=== PATIENT | male | born 1990 | race Caucasian/White ===

== ENCOUNTER 2024-11-16 18:07 | Emergency (ER) | payer OTHER ==
[2024-11-16 18:15] VITALS: TEMP 98; BMI 39.1
[2024-11-16] MEDS ORDERED: ACETAMINOPHEN 325 MG TABLET (FP) ONE ×2 (20:11→20:15)
[2024-11-16] MEDS ORDERED: DIPHTH,PERTUSS(ACELL),TET 0.5 ML DISP.SYRIN IM ONE (20:11)
[2024-11-16] MEDS ORDERED: CEPHALEXIN MONOHYDRATE 500 MG CAPSULE (UD) ONE (20:11)
[2024-11-16] MEDS: DIPHTH,PERTUSS(ACELL),TET 0.5 ML DISP.SYRIN IM ONE (20:21)
[2024-11-16] MEDS: ACETAMINOPHEN 500 MG TABLET (FP) PO ONE (20:22)
[2024-11-16] MEDS: CEPHALEXIN MONOHYDRATE 500 MG CAPSULE (UD) PO ONE (20:22)
[2024-11-16 20:30] LABS: ABSOLUTE IMMATURE GRANULOCYTES 0.09 x10^3/uL (0.0-0.031); BASOPHILS # 0.08 x10^3/uL (0.01-0.08); EOSINOPHIL % 0.3 % (0.8-7.0); EOSINOPHILS # 0.06 x10^3/uL (0.04-0.54); MCHC 31.1 g/dl (32.3-36.5); MEAN CELL VOLUME 85.6 fl (79.0-92.2); MEAN PLT VOLUME 11.0 fl (9.4-12.4); MONOCYTE # 0.88 x10^3/uL (0.30-0.82); MONOCYTE % 4.5 % (5.3-12.2); RDW 13.6 % (12.0-15.6)
[2024-11-16 20:46] LABS: INR 1.02 (0.83-1.09); PROTHROMBIN TIME (PATIENT) 11.1 SEC (9.7-13.0)
[2024-11-16 20:49] LABS: ACTIVATED PTT 28.6 SECONDS (25.2-36.5)
[2024-11-16 21:02] LABS: GLUCOSE,RANDOM 88.0 mg/dL (74-106); TOT PROT 8.2 g/dl (6.4-8.2)
[2024-11-16 21:05] LABS: ALK PHOS 82.0 U/L (40-150)
[2024-11-16 21:08] LABS: CREATININE 1.26 mg/dL (0.55-1.3); SGOT/AST 38.0 U/L (5-34); SGPT/ALT 43.0 U/L (0-55)
[2024-11-16 21:09] LABS: CO2 18.0 mmol/L (21-32)
[2024-11-16 22:32] LABS: HCV DIAGNOSTIC IN-HOUSE W/RFLX NON-REACTIVE (NONREACTIVE)
[2024-11-16 22:33] LABS: HIV INTERPRETATION NEGATIVE (NEGATIVE)
[2024-11-16 23:49] VITALS: BP 126/78; PULSE 78; RESP 16
== END 2024-11-16 23:49 | disposition home or self-care (01) ==
LOC: JER 18:07
PROC: 2W3RX1Z Immobilization of Left Lower Leg using Splint (ICD-10-PCS; principal; 2024-11-16)
PROC: 3E0234Z Introduction of Serum, Toxoid and Vaccine into Muscle, Percutaneous Approach (ICD-10-PCS; 2024-11-16)
DX: S82.52XA Displaced fracture of medial malleolus of left tibia, initial encounter for closed fracture (principal); S92.355A Nondisplaced fracture of fifth metatarsal bone, left foot, initial encounter for closed fracture; S80.211A Abrasion, right knee, initial encounter; S80.212A Abrasion, left knee, initial encounter; S50.811A Abrasion of right forearm, initial encounter; S50.311A Abrasion of right elbow, initial encounter; S50.312A Abrasion of left elbow, initial encounter; S30.810A Abrasion of lower back and pelvis, initial encounter; R10.30 Lower abdominal pain, unspecified; R05.9 Cough, unspecified; Z23 Encounter for immunization; V23.49XA Other motorcycle driver injured in collision with car, pick-up truck or van in traffic accident, initial encounter; Y92.410 Unspecified street and highway as the place of occurrence of the external cause
CPT/HCPCS: 29515; 36415; 70450-TC; 71260-TC; 72125-TC; 73070-TC-RT-FY; 73090-TC-RT-FY; 73562-TC-LT-FY; 73562-TC-RT-FY; 73610-TC-LT-FY; 73630-TC-LT; 74177-TC; 80053; 85025; 85610; 85730; 86803; 86850; 86900; 86901; 87389; 90471; 90715; 99285-25; Q9967

== ENCOUNTER 2024-12-25 06:15 | Day surgery (SDC) | payer OTHER ==
[2024-12-25 07:00] VITALS: BMI 39.1
[2024-12-25] MEDS ORDERED: PROPOFOL 20 ML ONE ×2 (10:57→12:31)
[2024-12-25] MEDS ORDERED: MIDAZOLAM HCL 2 MG/2 ML SINGLE DOSE VIAL ONE (10:58)
[2024-12-25] MEDS ORDERED: ACETAMINOPHEN INJECTION 100 ML ONE (11:19)
[2024-12-25] MEDS ORDERED: BUPIVACAINE HCL/PF 0.5% (5MG/ML) 10 ML VIAL ONE (11:46)
[2024-12-25] MEDS: BUPIVACAINE HCL/PF 0.5% (5MG/ML) 10 ML VIAL IJ ONE ×2 (12:25)
[2024-12-25] MEDS ORDERED: FENTANYL CITRATE/PF 50 MCG/ML VIAL ONE (13:10)
[2024-12-25 13:59] VITALS: RESP 18; TEMP 97.4
[2024-12-25 14:37] VITALS: BP 121/75; PULSE 78
== END 2024-12-25 14:39 | disposition home or self-care (01) ==
LOC: FASU 06:15
PROVIDERS: ATTEND Orthopaedic Surgery Sports Medicine
PROC: 0QSH04Z Reposition Left Tibia with Internal Fixation Device, Open Approach (ICD-10-PCS; principal; 2024-12-25 11:44)
DX: S82.52XA Displaced fracture of medial malleolus of left tibia, initial encounter for closed fracture (principal); W18.30XA Fall on same level, unspecified, initial encounter; Y93.9 Activity, unspecified; Y92.89 Other specified places as the place of occurrence of the external cause; Y99.8 Other external cause status
CPT/HCPCS: 73610-TC-LT-FY; 94760; C1713